=== PATIENT | female | born 1940 ===

== ENCOUNTER 2018-02-01 08:56 | Day surgery (SDC) | payer MEDICARE, BC ==
[~2018-02-01 08:56] MED LIST: Acetaminophen TAB* 325 MG PO PRN; Buffered Lidocaine 0.9% SYRIN* 5 ML/SYR SYRINGE INTRADERM ONE; DiMENhydriNATE IV* 50 MG/ML VIAL IV PUSH PRN; HYDROcodone/ACETAMIN 5-325 MG* 1 TAB PO PRN; Naloxone* 0.4 MG/ML 1 ML VIAL IV PRN; Ondansetron INJ* 2 MG/ML VIAL IV PRN; PROCHLORPERAZINE INJ 5 MG/ML 2 ML VIAL IV PRN
[2018-02-01] MEDS ORDERED: ceFAZolin 2 GM PREMIX (*) 2 GM/50 ML BAG IVPB ONE (09:02)
[2018-02-01] MEDS ORDERED: Midazolam* 1 MG/ML 2 ML VIAL (2 MG) ONE (10:12)
[2018-02-01] MEDS ORDERED: fentaNYL* 50 MCG/ML 2 ML VIAL (100 MCG VIAL) ONE (10:12)
[2018-02-01] MEDS ORDERED: Bupivacaine 0.25% W/EPI* 10 ML SDV ONE ×2 (10:41→10:44)
[2018-02-01] MEDS ORDERED: Propofol* 10 MG/ML 20 ML BTL IV PUSH ONE (10:53)
[2018-02-01] MEDS ORDERED: Ketorolac INJ* 30 MG/ML 1 ML VIAL ONE (10:53)
[2018-02-01] MEDS ORDERED: Lidocaine 2% PF * 5 ML VIAL ONE (10:53)
[2018-02-01 11:41] VITALS: BP 136/57
== END 2018-02-01 12:00 | disposition home or self-care (01) ==
LOC: OREAST 08:56
PROVIDERS: ATTEND Plastic Surgery
DX: L72.0 Epidermal cyst (principal); J45.909 Unspecified asthma, uncomplicated; I10 Essential (primary) hypertension; E11.9 Type 2 diabetes mellitus without complications; Z79.84 Long term (current) use of oral hypoglycemic drugs
CPT/HCPCS: 88304; J0690; J1885; J2250; J2704; J3010